=== PATIENT | female | born 1945 | race Asian ===

== ENCOUNTER 2022-07-07 19:30 | Emergency (ER) | payer OTHER ==
[~2022-07-07] VITALS: Ht 147.3 cm; Wt 42.6 kg
[2022-07-07 19:36] VITALS: BP_SYST 125
--- NOTE | 2022-07-07 19:43 | NUR ---
Patient triaged and placed in waiting room. VSS and patient appears in no acute distress at this time. Accompanied by partner, awaiting available bed, and MD notified of need for MSE.
[2022-07-07 19:59] LABS: BILIRUBIN,URINE NEGATIVE (NEGATIVE); BLOOD, URINE 2+ (NEGATIVE); CLARITY/URINE CLEAR (CLEAR); COLOR,URINE YELLOW (YELLOW); GLUCOSE,URINE NEGATIVE (NEGATIVE); KETONES,URINE NEGATIVE (NEGATIVE); NITRITE, URINE NEGATIVE (NEGATIVE); PROTEIN URINE NEGATIVE (NEGATIVE); UROBILINOGEN,URINE 0.2 (0.2-1.0)
--- NOTE | 2022-07-07 19:59 | NUR ---
COVID, MRSA, AND URINE SAMPLE COLLECTED AND SENT TO LAB.
[2022-07-07 20:10] LABS: BASOPHILS % (AUTO) 0.1 % (0.0-2.0); HEMATOCRIT 44.5 % (36-48); HEMOGLOBIN 14.9 g/dL (12.0-16.0); LYMPHOCYTES # (AUTO) 0.9 K/uL (1.0-5.5); LYMPHOCYTES % (AUTO) 6.5 % (20.5-51.5); MEAN CORPUSCULAR HEMOGLOBIN 30 pg (27-31); MEAN CORPUSCULAR HGB CONC 34 % (32-36); MEAN CORPUSCULAR VOLUME 90 fL (79.0-98.0); MONOCYTES # (AUTO) 0.9 K/uL (0.0-1.0); MONOCYTES % (AUTO) 6.9 % (1.7-9.3); NEUTROPHILS # (AUTO) 11.3 K/uL (1.8-7.7); NEUTROPHILS % (AUTO) 86.5 % (40.0-70.0); PLATELET COUNT (AUTO) 198 K/uL (130-430); RED BLOOD CELL COUNT(AUTO) 4.93 MIL/uL (4.2-6.2); RED CELL DISTRIBUTION WIDTH 13.8 % (9.0-15.0); WHITE BLOOD COUNT (AUTO) 13.1 K/uL (4.8-10.8)
[2022-07-07 20:20] LABS: LEUKOCYTE ESTERASE ,URINE NEGATIVE (NEGATIVE)
[2022-07-07 20:22] LABS: BACTERIA,URINE FEW /HPF (None Seen); MUCUS,URINE None Seen /LPF (None Seen); RBC,URINE NONE SEEN /HPF (0-3); WBC,URINE 0-3 /HPF (0-3)
[2022-07-07 20:24] LABS: ANION GAP 12 (5-15); CALCIUM 9.2 mg/dL (8.4-11.0); CHLORIDE 99 mmol/L (98-107); CREATININE 0.75 mg/dL (0.55-1.30); GLUCOSE 137 mg/dL (70-99); UREA NITROGEN, BLOOD 19 mg/dL (8-21)
[2022-07-07 20:28] LABS: ALANINE AMINOTRANSFERASE 27 U/L (12-78); ALBUMIN 3.9 g/dL (3.4-4.8); ASPARTATE AMINOTRANSFERASE 23 U/L (10-37); LIPASE 247 U/L (73-393); TOTAL BILIRUBIN 0.6 mg/dL (0.0-1.0)
--- NOTE | 2022-07-07 20:53 | NUR ---
Patient ambulated to ER bed 8 with a steady gait.
--- NOTE | 2022-07-07 20:55 | NUR ---
Dr. Rincon at bedside examining the patient.
[2022-07-07] MEDS ORDERED: TRAM50TA2 PO (21:09)
--- NOTE | 2022-07-07 21:31 | NUR ---
Patient is alert and oriented x4, respirations even and unlabored, speaking in full sentences, and ambulating with a steady gait. Denied any acute distress at this time. Okay for discharge per Dr. Rincon. Printed discharge instructions and prescription given to the patient. ED and 911 precautions given. Patient verbalized understanding.
== END 2022-07-07 21:31 | disposition home or self-care (01) ==
LOC: SED 19:30
DX: Q44.6 Cystic disease of liver (principal); R10.13 Epigastric pain; R11.0 Nausea; Z88.6 Allergy status to analgesic agent; Z88.8 Allergy status to other drugs, medicaments and biological substances; Z91.041 Radiographic dye allergy status; Z79.899 Other long term (current) drug therapy; Z20.822 Contact with and (suspected) exposure to COVID-19
CPT/HCPCS: 36415; 76700-TC; 80053; 81000; 83690; 85025; 99284